=== PATIENT | male | born 1960 | race Caucasian/White ===

== ENCOUNTER 2018-05-10 06:28 | Emergency (ER) | payer BC ==
[2018-05-10 06:28] VITALS: BMI 32.4
--- NOTE | 2018-05-10 06:35 | C.PDOC ---
History Of Present Illness Patient presents to the ER via EMS after being found with weakness and slurred speech on the street while on his way to work. Patient has a Hx of diabetes, however, his sugar was found to be 144. Patient appears to have ETOH on breath. Code stroke called at [id number]. Denies chest pain, SOB, nausea, vomiting, fever, or chills. Time Seen by Provider: 05/10/18 06:34 Chief Complaint (Nursing): Altered Mental Status History Per: Patient History/Exam Limitations: None Onset/Duration Of Symptoms: Hrs Onset Of Symptoms: Cannot Confirm Onset Current Symptoms Are (Timing): Still Present Usual Baseline: Alert Oriented Exacerbating Factor(s): Diabetic Use Of Anticoag/Antiplatelets: No Speech Is: Slurred (very mild) Severity: None Pain Scale Rating Of: 0 Recent travel outside of the [place]: No Additional History Per: EMS Associated Symptoms: denies: Fever, Chills, Chest Pain, Vomiting, Dyspnea Past Medical History Reviewed: Historical Data, Nursing Documentation, Vital Signs Vital Signs: Last Vital Signs Temp 98.7 F 05/10/18 06:34 Pulse 74 05/10/18 06:34 Resp 16 05/10/18 06:34 BP 117/75 05/10/18 06:34 Pulse Ox 94 L 05/10/18 06:34 - Medical History PMH: Diabetes, HTN, Kidney Stones, Pancreatitis Denies: CVA, HIV, Chronic Kidney Disease Surgical History: Appendectomy, Cholecystectomy - [facility] Procedures DIPHTHERIA TOXOID ADMIN (09/30/14) INJECT/INFUSE NEC (02/11/14) RESECTION OF APPENDIX, PERCUTANEOUS ENDOSCOPIC APPROACH (08/14/15) SUTURE OF LIP LACERATION (09/30/14) TETANUS TOXOID ADMINIST (09/30/14) Family History: States: Diabetes - Social History Hx Alcohol Use: No (occasional) Hx Substance Use: No - Immunization History Hx Tetanus Toxoid Vaccination: Yes Hx Influenza Vaccination: No Hx Pneumococcal Vaccination: No Review Of Systems Constitutional: Negative for: Fever, Chills Eyes: Negative for: Vision Change ENT: Negative for: Throat Pain Cardiovascular: Negative for: Chest Pain, Palpitations Respiratory: Negative for: Cough, Shortness of Breath Gastrointestinal: Negative for: Nausea, Vomiting Genitourinary: Negative for: Dysuria, Hematuria Musculoskeletal: Negative for: Back Pain Skin: Positive for: Bruising (rifht face). Negative for: Rash Neurological: Positive for: Other (very mild disarthria speech). Negative for: Weakness, Numbness Psych: Negative for: Anxiety Physical Exam - Physical Exam Appears: Non-toxic Skin: Warm, Dry Head: Normacephalic, Other (Small ecchymosis over right eye and cheek from a fall a few weeks ago) Eye(s): bilateral: Normal Inspection, PERRL, EOMI Oral Mucosa: Moist Tongue: Normal Appearing Lips: Normal Appearing Neck: Trachea Midline, Supple Chest: Symmetrical, No Tenderness Cardiovascular: Rhythm Regular Respiratory: No Rales, No Rhonchi, No Wheezing Gastrointestinal/Abdominal: Soft, No Tenderness Back: No CVA Tenderness Extremity: Other (Moves all extremities) Extremity: Bilateral: Atraumatic, No Pedal Edema, Normal Color And Temperature, Normal ROM Pulses: Left Dorsalis Pedis: Normal, Right Dorsalis Pedis: Normal Neurological/Psych: Oriented x3, Normal Motor, Normal Sensation, Other (No focal deficits) Gait: Unable To Assess ED Course And Treatment O2 Sat by Pulse Oximetry: 94 Pulse Ox Interpretation: Normal Progress Note: CT head, blood work, and CXR ordered. Spoke with Dr. Morgan who is aware of patient. Critical Care Time - Critical Care Note Total Time (in mins): 30 Documented critical care: time excludes all time spent performing seperately billable procedures. NIHSS Stroke Scale - Date/Time Evaluation Performed Date Performed: 05/10/18 Time Performed: 06:27 When Was NIHSS Performed: Baseline - How Severe is the Stoke Level of Consciousness: 0=Alert LOC to Questions: 0=Both comments correct LOC to commands: 0=Obeys both correctly Best Gaze: 0=Normal Visual: 0=No visual loss Facial: 0=Normal Motor Arm - Left: 0=No drift Motor Arm - Right: 0=No drift Motor Leg - Left: 0=No drift Motor Leg - Right: 0=No drift Limb Ataxia: 0=Absent Sensory: 0=Normal Best Language: 0=No aphasia Dysarthia: 0=Normal articulation Extinction & Inattention (Neglect): 0=Normal, no object Score: 0 Severity Of Stroke: 0= No Stroke Disposition Counseled Patient/Family Regarding: Studies Performed, Diagnosis - Disposition Disposition Time: 06:34 Condition: GUARDED Forms: [facility] ([place]) - Clinical Impression Clinical Impression: TIA (transient ischemic attack) - Scribe Statement The provider has reviewed the documentation as recorded by the Scribe Ernesto Will All medical record entries made by the Scribe were at my direction and personally dictated by me. I have reviewed the chart and agree that the record accurately reflects my personal performance of the history, physical exam, medical decision making, and the department course for this patient. I have also personally directed, reviewed, and agree with the discharge instructions and disposition. Physician Patient Turnover Patient Signed Over To: Stanley Howell Handoff Comments: Pending CT, labs, and dispo. Decision To Admit - . Patient Diagnosis: TIA (transient ischemic attack)
[2018-05-10] MEDS ORDERED: Iodixanol 320 mg/ml 150 ml Bottle IV ONE (06:44)
[2018-05-10 07:20] LABS: VENOUS BLOOD GAS BASE EXCESS -0.2 mmol/L (0.0-2.0); VENOUS BLOOD GAS PCO2 44 mmHg (40-60); VENOUS BLOOD GAS PO2 49 mm/Hg (30-55); VENOUS BLOOD PH 7.37 (7.32-7.43)
[2018-05-10 07:27] LABS: BASO # 0.1 K/uL (0.0-0.2); BASO % 1.3 % (0.0-2.0); EOS # 0.1 K/uL (0.0-0.7); EOS % 1.5 % (0.0-4.0); HEMOGLOBIN 11.5 g/dL (12.0-18.0); LYMPH # 2.8 K/uL (1.0-4.3); LYMPH % 53.6 % (20.0-40.0); MEAN CELL VOLUME 97.9 fL (80.0-94.0); MEAN CORPUSCULAR HGB CONC 34.8 g/dL (33.0-37.0); MONO # 0.6 K/uL (0.0-0.8); MONO % 10.6 % (0.0-10.0); NEUT # 1.7 K/uL (1.8-7.0); NRBC % 0.1 % (0.0-2.0); RBC 3.38 Mil/uL (4.40-5.90); WHITE BLOOD COUNT 5.2 K/uL (4.8-10.8)
--- NOTE | 2018-05-10 07:38 | CT ---
Date of service: 05/10/2018 PROCEDURE: CT HEAD WITHOUT CONTRAST. HISTORY: Code Stroke COMPARISON: None available. TECHNIQUE: Axial computed tomography images were obtained through the head/brain without intravenous contrast. Radiation dose: Total exam DLP = 1207 mGy-cm. This CT exam was performed using one or more of the following dose reduction techniques: Automated exposure control, adjustment of the mA and/or kV according to patient size, and/or use of iterative reconstruction technique. FINDINGS: HEMORRHAGE: No intracranial hemorrhage. BRAIN: No mass effect or edema. Scattered focal lucencies in the subcortical and periventricular white matter suggestive for chronic microvascular ischemic change. Punctate hypodensity in the left basal ganglia may represent prominent perivascular space versus punctate lacunar infarct. VENTRICLES: Unremarkable. No hydrocephalus. CALVARIUM: Unremarkable. PARANASAL SINUSES: Unremarkable as visualized. No significant inflammatory changes. MASTOID AIR CELLS: Unremarkable as visualized. No inflammatory changes. OTHER FINDINGS: None. IMPRESSION: No acute intracranial abnormality. If symptoms persists, consider correlation with MRI. These findings were preliminarily reported at 6:49 a.m. on 05/10/[address] Louie Farias from [facility].
[2018-05-10 07:39] LABS: ALB/GLOB RATIO 1.3 (1.0-2.1); ALBUMIN 4.2 g/dL (3.5-5.0); ALT/SGPT 43 U/L (21-72); AST/SGOT 55 U/L (17-59); BLOOD UREA NITROGEN 13 mg/dL (9-20); CALCIUM 8.6 mg/dl (8.6-10.4); GFR NON-AFRICAN AMERICAN > 60; HDL CHOLESTEROL 64 mg/dL (30-70)
[2018-05-10 07:51] LABS: LDL CHOLESTEROL 115 mg/dL (0-129)
--- NOTE | 2018-05-10 08:47 | RAD ---
Date of service: 05/10/2018 HISTORY: Code Stroke COMPARISON: No prior. FINDINGS: LUNGS: The lungs are well inflated and clear. PLEURA: No significant pleural effusion identified, no pneumothorax apparent. CARDIOVASCULAR: Normal. OSSEOUS STRUCTURES: No significant abnormalities. VISUALIZED UPPER ABDOMEN: Normal. OTHER FINDINGS: None. IMPRESSION: No acute findings.
--- NOTE | 2018-05-10 09:21 | CT ---
PROCEDURE: CTA HEAD AND NECK WITH CONTRAST HISTORY: cva COMPARISON: None available. TECHNIQUE: Initial noncontrast head CT was performed. Subsequently, CT angiogram of the head and neck were performed after the intravenous administration of 80 mL of Omnipaque 350. Contiguous 1.5mm thick images were obtained in the axial plane of the neck. 2-D coronal and sagittal MPR images were obtained. Imaging postprocessing was performed with 3-D images also obtained. A delayed contrast head CT was also obtained. This CT exam was performed using one or more of the following dose reduction techniques: Automated exposure control, adjustment of the mA and/or kV according to patient size, and/or use of iterative reconstruction technique. Contrast dose: 100 mL Visipaque Radiation dose: Total exam DLP = 604.54 mGy-cm. FINDINGS: HEAD: Right: The intracranial internal carotid artery, and anterior and middle cerebral arteries are widely patent. Left: The intracranial internal carotid artery, and anterior and middle cerebral arteries are widely patent. Posterior circulation: The visualized intracranial vertebral arteries, basilar artery and posterior cerebral arteries are widely patent. There is no endoluminal filling defect to suggest thrombus. There is no intracranial saccular aneurysm. NECK: There is a three vessel aortic arch. There is no stenosis at the origins of the great vessels at the level of the aortic arch. Right Carotid: On the right, the common carotid, internal carotid and external carotid arteries are widely patent. There is no hemodynamically significant stenosis in the internal carotid artery by NASCET criteria. Left Carotid: On the left, the common carotid, internal carotid and external carotid arteries are widely patent. There is no hemodynamically significant stenosis in the internal carotid artery by NASCET criteria. The vertebral arteries are widely patent. The vertebral arteries are codominant. The visualized soft tissues of the neck are normal. The visualized brain and cervical spine are within normal limits. The lung apices are clear. IMPRESSION: 1. No evidence of endoluminal thrombus,occlusion or definite significant stenosis in the intracranial arteries. 2. No evidence of hemodynamically significant stenosis in the internal carotid arteries. 3. Patent bilateral vertebral arteries.
[2018-05-10 09:36] VITALS: RESP 18
[2018-05-10 14:52] VITALS: BP 145/95; PULSE 72; TEMP 98.2; O2SAT 100
--- NOTE | 2018-05-11 12:59 | CARD ---
APPROVED REPORT Date of service: 05/10/2018 EKG Measurement Heart [id number] <Conclusion> Normal sinus rhythm Left axis deviation Abnormal ECG
== END 2018-05-10 15:00 | disposition home or self-care (01) ==
LOC: C.ER 06:28
DX: F10.129 Alcohol abuse with intoxication, unspecified (principal); E11.9 Type 2 diabetes mellitus without complications; I10 Essential (primary) hypertension
CPT/HCPCS: 70450; 70496; 70498; 71045; 80053; 80061; 82009; 82803; 82948; 83036; 84484; 85025; 85610; 85730; 86850; 86900; 92610; 93005; 99291; G0480; G8996; G8997; G8998; Q9967

== ENCOUNTER 2018-06-20 21:44 | Emergency (ER) | payer BC ==
[2018-06-20 21:45] VITALS: BMI 29.4
--- NOTE | 2018-06-20 22:45 | C.PDOC ---
History Of Present Illness 57 year old male presents to the ER via EMS after neighbors heard him crying in his apartment and called 911. Patient is a daily drinker and expressed to EMS that he wants to . Upon arrival, patient is found to be intoxicated and denies suicidal ideation as well as homicidal ideation and other drug use. <Terese Bentley - Last Filed: 06/20/18 22:42> History Per: Patient, EMS History/Exam Limitations: no limitations Onset/Duration Of Symptoms: Hrs Current Symptoms Are (Timing): Still Present Suicide/Self Injury Attempted (Context): None Modifying Factor(s): Alcohol Associated Symptoms: denies: Suicidal Thoughts, Other (Homicidal ideation) Involuntary Hold By: None Recent travel outside of the [place]: No <Terese Bentley - Last Filed: 06/20/18 22:42> <Milan Palomino DO - Last Filed: 06/23/18 18:49> Time Seen by Provider: 06/20/18 21:46 Chief Complaint (Nursing): Psychiatric Evaluation Past Medical History Reviewed: Historical Data, Nursing Documentation, Vital Signs Vital Signs: Last Vital Signs Temp 98 F 06/20/18 21:51 Pulse 119 H 06/20/18 21:51 Resp 20 06/20/18 21:51 BP 165/97 H 06/20/18 21:51 Pulse Ox 97 06/20/18 21:51 - Medical History PMH: Diabetes, Gall Bladder Disease, HTN, Kidney Stones, Pancreatitis, Sexually Transmitted Disease Denies: CVA, Hepatitis, HIV, Chronic Kidney Disease, Seizures Surgical History: Appendectomy, Cholecystectomy - [facility] Procedures DETOXIFICATION SERVICES FOR SUBSTANCE ABUSE TREATMENT (05/23/18) DIPHTHERIA TOXOID ADMIN (09/30/14) GROUP VEGETABLE THINNER FOR SUBSTANCE ABUSE TREATMENT, PSYCHOEDUCATION (05/23/18) INDIV PSYCHOTHERAPY FOR SUBSTANCE ABUSE TREATMENT, SUPPORT (05/23/18) INJECT/INFUSE NEC (02/11/14) RESECTION OF APPENDIX, PERCUTANEOUS ENDOSCOPIC APPROACH (08/14/15) SUTURE OF LIP LACERATION (09/30/14) TETANUS TOXOID ADMINIST (09/30/14) Family History: States: Diabetes - Social History Hx Alcohol Use: Yes Hx Substance Use: Yes - Immunization History Hx Tetanus Toxoid Vaccination: Yes Hx Influenza Vaccination: No Hx Pneumococcal Vaccination: No <Terese Bentley - Last Filed: 06/20/18 22:42> Vital Signs: Last Vital Signs Temp 98.7 F 06/21/18 00:18 Pulse 100 H 06/21/18 00:18 Resp 18 06/21/18 00:18 BP 129/72 06/21/18 00:18 Pulse Ox 98 06/21/18 00:18 - [facility] Procedures DETOXIFICATION SERVICES FOR SUBSTANCE ABUSE TREATMENT (05/23/18) DIPHTHERIA TOXOID ADMIN (09/30/14) GROUP VEGETABLE THINNER FOR SUBSTANCE ABUSE TREATMENT, PSYCHOEDUCATION (05/23/18) INDIV PSYCHOTHERAPY FOR SUBSTANCE ABUSE TREATMENT, SUPPORT (05/23/18) INJECT/INFUSE NEC (02/11/14) RESECTION OF APPENDIX, PERCUTANEOUS ENDOSCOPIC APPROACH (08/14/15) SUTURE OF LIP LACERATION (09/30/14) TETANUS TOXOID ADMINIST (09/30/14) <Milan Palomino DO - Last Filed: 06/23/18 18:49> Review Of Systems Constitutional: Negative for: Fever, Chills Cardiovascular: Negative for: Chest Pain, Palpitations Respiratory: Negative for: Cough, Shortness of Breath Gastrointestinal: Negative for: Nausea, Vomiting Psych: Negative for: Suicidal ideation, Other (Homicidal ideation) <Terese Bentley - Last Filed: 06/20/18 22:42> Physical Exam - Physical Exam Appears: Non-toxic, Other (In distress, tearful, intoxicated) Skin: Normal Color, Warm, Dry Head: Atraumatic, Normacephalic Eye(s): bilateral: Normal Inspection Oral Mucosa: Moist Neck: Normal, Supple Chest: Symmetrical, No Tenderness Cardiovascular: Rhythm Regular Respiratory: Normal Breath Sounds, No Rales, No Rhonchi, No Wheezing Gastrointestinal/Abdominal: Soft, No Tenderness Back: No CVA Tenderness Extremity: Normal ROM (x4) Neurological/Psych: Oriented x3, Normal Speech <Terese Bentley - Last Filed: 06/20/18 22:42> ED Course And Treatment O2 Sat by Pulse Oximetry: 97 (Room air) Pulse Ox Interpretation: Normal <Terese Bentley - Last Filed: 06/20/18 22:42> - Laboratory Results Result Diagrams: 06/20/18 22:59 06/20/18 22:59 Progress Note: Patient cleared for discharge by Dr. Curtis. <Milan Palomino DO - Last Filed: 06/23/18 18:49> Medical Decision Making Medical Decision Making: Plan: Blood work Urinalysis Crisis <Terese Bentley - Last Filed: 06/20/18 22:42> Disposition <Terese Bentley - Last Filed: 06/20/18 22:42> - Disposition Disposition Time: 04:30 <Milan Palomino DO - Last Filed: 06/23/18 18:49> - Disposition Referrals: Pito Noguera MD [Primary Care Provider] - Disposition: HOME/ ROUTINE Condition: IMPROVED Additional Instructions: RABIA WEBB, thank you for letting us take care of you today. The emergency me dical care you received today was directed at your acute symptoms. If you were prescribed any medication, please fill it and take as directed. It may take several days for your symptoms to resolve. Return to the Emergency Department if your symptoms worsen, do not improve, or if you have any other problems. Please contact your doctor or call one of the physicians/clinics you have been referred to that are listed on the Patient Visit Information form that is included in your discharge packet. Bring any paperwork you were given at discharge with you along with any medications you are taking to your follow up visit. Our treatment cannot replace ongoing medical care by a primary care provider outside of the emergency department. Thank you for allowing the [facility] team to be part of your care today. Follow up with your primary care doctor in 2-3 days for re-evaluation and furth er management. Instructions: Depression, Alcohol Use - When Is Drinking a Problem? Forms: [facility] ([place]), Work Excuse - Clinical Impression Clinical Impression: Alcohol use, Depression - Scribe Statement The provider has reviewed the documentation as recorded by the Scribdavid Will All medical record entries made by the Scribe were at my direction and personally dictated by me. I have reviewed the chart and agree that the record accurately reflects my personal performance of the history, physical exam, medical decision making, and the department course for this patient. I have also personally directed, reviewed, and agree with the discharge instructions and disposition. <Terese Bentley - Last Filed: 06/20/18 22:42>
[2018-06-20 23:02] LABS: BASO # 0.1 K/uL (0.0-0.2); BASO % 1.4 % (0.0-2.0); EOS # 0.1 K/uL (0.0-0.7); EOS % 1.3 % (0.0-4.0); HEMOGLOBIN 12.5 g/dL (12.0-18.0); LYMPH # 2.2 K/uL (1.0-4.3); LYMPH % 35.5 % (20.0-40.0); MEAN CELL VOLUME 98.8 fL (80.0-94.0); MEAN CORPUSCULAR HGB CONC 34.4 g/dL (33.0-37.0); MEAN PLATELET VOLUME 8.3 fL (7.2-11.7); MONO # 0.4 K/uL (0.0-0.8); MONO % 6.9 % (0.0-10.0); NEUT # 3.4 K/uL (1.8-7.0); NEUT % 54.9 % (50.0-75.0); NRBC % 0.1 % (0.0-2.0); RBC 3.68 Mil/uL (4.40-5.90); RED CELL DISTRIBUTION WIDTH 13.5 % (11.5-14.5); WHITE BLOOD COUNT 6.2 K/uL (4.8-10.8)
[2018-06-20 23:17] LABS: GRANULAR CAST 3 /lpf (0-1); SQUAMOUS EPITHIAL 1 /hpf (0-5); URINE BACTERIA RARE (<OCC); URINE BILIRUBIN NEGATIVE (NEGATIVE); URINE BLOOD 2+ (NEGATIVE); URINE CLARITY Hazy (Clear); URINE COLOR Yellow (YELLOW); URINE GLUCOSE (UA) 1+ mg/dL (Normal); URINE HYALINE CAST >20 /lpf (0-2); URINE LEUKOCYTE ESTERASE NEG Leu/uL (Negative); URINE PROTEIN 2+ mg/dL (NEGATIVE); URINE UROBILINOGEN NORMAL mg/dL (0.2-1.0)
[2018-06-20 23:19] LABS: ALB/GLOB RATIO 1.2 (1.0-2.1); ALBUMIN 4.5 g/dL (3.5-5.0); ALT/SGPT 60 U/L (21-72); AST/SGOT 66 U/L (17-59); BLOOD UREA NITROGEN 16 mg/dL (9-20); CALCIUM 9.4 mg/dl (8.6-10.4); GFR NON-AFRICAN AMERICAN > 60
[2018-06-20 23:26] LABS: BARBITURATES, UR NEGATIVE (NEGATIVE); OPIATES, UR NEGATIVE (NEGATIVE); PHENCYCLIDINE, UR NEGATIVE (NEGATIVE)
[2018-06-20 23:30] LABS: BENZODIAZEPINES, UR POSITIVE (NEGATIVE)
[2018-06-21 00:33] VITALS: O2SAT 98
[2018-06-21 04:35] VITALS: BP 154/81; PULSE 116; RESP 20; TEMP 98.2
== END 2018-06-21 04:49 | disposition home or self-care (01) ==
LOC: C.ER 21:44 → SUPCPDRO 21:44 → C.ER 06-21 04:49
DX: F10.10 Alcohol abuse, uncomplicated (principal); F32.9 Major depressive disorder, single episode, unspecified; Y90.8 Blood alcohol level of 240 mg/100 ml or more; E11.9 Type 2 diabetes mellitus without complications; I10 Essential (primary) hypertension
CPT/HCPCS: 80053; 81001; 82948; 83735; 84100; 85025; 99285; G0480